=== PATIENT | male | born 1955 | race Two or more races ===

== ENCOUNTER → 2017-11-27 | Outpatient (CLI) | payer OTHER ==
[~2017-11-27] MED LIST: AMLO10TA2 PO; LOSA100T6 PO; METO50TA82 PO; QUET100T4 PO; ROSU20TA PO; ZIPR40CA2 PO; ZOLP10TA PO
== END ==
LOC: RAD 14:33
PROVIDERS: ATTEND Nurse Practitioner
DX: I70.0 Atherosclerosis of aorta (principal); I71.9 Aortic aneurysm of unspecified site, without rupture; I25.10 Atherosclerotic heart disease of native coronary artery without angina pectoris; K80.20 Calculus of gallbladder without cholecystitis without obstruction; J44.9 Chronic obstructive pulmonary disease, unspecified
CPT/HCPCS: 71250

== ENCOUNTER 2018-06-25 13:24 | Inpatient (IN) | payer OTHER ==
[~2018-06-25] VITALS: Ht 170.2 cm; Wt 90.7 kg
[~2018-06-25 13:24] MED LIST changes: -AMLO10TA2 PO; +AMLO10TA8 PO; +LOSA100T14 PO; -LOSA100T6 PO
[2018-06-25] MEDS ORDERED: ASPIRIN 81 MG TABLET CHEW ONE (13:36)
--- NOTE | 2018-06-25 13:54 | NUR ---
PT ARRIVES FROM HOME TODAY WITH INCREASED DIFFICULTY OF BREATHING. PT REPORTS THAT IN THE PAST FEW DAYS HIS BREATHING HAS BEEN MORE DIFFICULT AND HAS BEEN NEEDING TO REST MORE AT HOME. PT HAS HX OF COPD AND ASTHMA. PT IS NOT ON STEROIDS AT THIS TIME. PT CONNECTED TO MONITORS AND CALL LIGHT IN REACH. PT PIV PLACED. EKG TO BE REPEATED.
[2018-06-25] MEDS ORDERED: ASPIRIN 81 MG TABLET CHEW PO ONE (14:00)
[2018-06-25] MEDS ORDERED: SODIUM CHLORIDE FLUSH 10ML SYR IVF ONE (14:00)
[2018-06-25 14:06] LABS: BASOPHILS # (AUTO) 0.05 x10^3/uL (0-0.1); BASOPHILS % (AUTO) 1 % (0-1); EOSINOPHILS # (AUTO) 0.43 x10^3/uL (0-0.4); EOSINOPHILS % (AUTO) 6 % (1-7); LYMPHOCYTES # (AUTO) 1.97 x10^3/uL (1-3.4); LYMPHOCYTES % (AUTO) 29 % (22-44); MD NO; MEAN CORPUSCULAR HEMOGLOBIN 31.5 pg (27.5-34.5); MEAN CORPUSCULAR HGB CONC 34.4 g/dL (33.2-36.2); MEAN CORPUSCULAR VOLUME 91.7 fL (81-97); MEAN PLATELET VOLUME 8.6 fL (7.4-10.4); MONOCYTES # (AUTO) 0.69 x10^3/uL (0.2-0.8); MONOCYTES % (AUTO) 10 % (2-9); NEUTROPHILS # (AUTO) 3.63 x10^3/uL (1.8-6.8); NEUTROPHILS % (AUTO) 54 % (42-75); PLATELET COUNT 164 x10^3/uL (130-400); RED BLOOD COUNT 4.37 x10^6/uL (4.38-5.82); RED CELL DISTRIBUTION WIDTH 14.1 % (9.4-14.8)
[2018-06-25 14:17] LABS: ALBUMIN 3.3 g/dL (3.4-5.0); ANION GAP 6 mmol/L (5-15); CALCIUM 8.7 mg/dL (8.5-10.1); CHLORIDE 112 mmol/L (98-107); CREATININE 1.34 mg/dL (0.7-1.3)
[2018-06-25 14:20] LABS: TROPONIN I < 0.015 ng/mL (0.000-0.045)
[2018-06-25] MEDS ORDERED: METF500T27 PO (15:15)
[2018-06-25] MEDS ORDERED: CARV6.252 PO (15:15)
[2018-06-25] MEDS ORDERED: SODIUM CHLORIDE FLUSH 10ML SYR IVF PRN (17:00)
--- NOTE | 2018-06-25 17:03 | NUR ---
PT TBADM AT THIS TIME. PT RESTIGN IN BED. HAS AMBULATED TO RESTROOM WITHOUT DISTRESS.
--- NOTE | 2018-06-25 17:46 | NUR ---
REPORT TO NICHOLAS PRADO
[2018-06-25 18:10] VITALS: BP 165/76
[2018-06-25] MEDS ORDERED: ACETAMINOPHEN 325 MG TABLET PO PRN (18:30)
[2018-06-25] MEDS ORDERED: morphine SULFATE 10 MG/ML, 1ML IV PRN (18:30)
[2018-06-25] MEDS ORDERED: NITROGLYCERIN 0.4 MG BOTTLE (25 TABS) SL PRN (18:30)
[2018-06-25] MEDS: METOPROLOL TARTRATE 50 MG TABLET PO SCH (18:40)
[2018-06-25] MEDS: HEPARIN 5,000 UNITS/ML, 1ML SQ SCH (18:41)
[2018-06-25 18:48] LABS: CHOLESTEROL, TOTAL 153 mg/dL (140-239); TRIGLYCERIDES 130 mg/dL (50-200); VLDL CHOLESTEROL 26 mg/dL (0-25)
[2018-06-25 18:52] LABS: HDL CHOL % 50 % (26-37); HDL CHOLESTEROL (DIRECT) 76 mg/dL (40-60); LDL CHOLESTEROL,CALCULATED 51 mg/dL (54-169); LDL/HDL RATIO 0.7 (0.5-3.0); TROPONIN I 0.016 ng/mL (0.000-0.045)
[2018-06-25 19:40] LABS: HEMOGLOBIN A1C 6.1 % (4.2-6.3)
[2018-06-25 19:43] VITALS: BP 160/78
[2018-06-25] MEDS ORDERED: SODIUM CHLORIDE FLUSH 10ML SYR IVF SCH (21:00)
[2018-06-25] MEDS ORDERED: QUETIAPINE 100MG TABLET PO SCH (21:00)
[2018-06-25] MEDS: ZIPRASIDONE 40MG CAPSULE PO SCH (21:14)
[2018-06-25 21:51] LABS: TROPONIN I < 0.015 ng/mL (0.000-0.045)
[2018-06-25] MEDS ORDERED: ZOLPIDEM 10MG TABLET PO PRN (22:00)
[2018-06-26 02:08] VITALS: BP 157/70
[2018-06-26] MEDS: HEPARIN 5,000 UNITS/ML, 1ML SQ SCH ×2 (02:53→11:57)
[2018-06-26 05:55] LABS: CHLORIDE 112 mmol/L (98-107)
[2018-06-26] MEDS ORDERED: ASPIRIN 81 MG TABLET EC PO SCH (06:00)
[2018-06-26 06:02] LABS: ALANINE AMINOTRANSFERASE 47 U/L (12-78); ALBUMIN 2.3 g/dL (3.4-5.0); ALKALINE PHOSPHATASE 102 U/L (45-117); ANION GAP 6 mmol/L (5-15); BILIRUBIN,TOTAL 0.4 mg/dL (0.2-1.0); CALCIUM 8.1 mg/dL (8.5-10.1); CREATININE 1.15 mg/dL (0.7-1.3)
[2018-06-26 07:07] VITALS: BP 172/84
[2018-06-26] MEDS ORDERED: REGADENOSON 0.4 MG/5 ML SYRINGE ONE (08:29)
[2018-06-26] MEDS: ZIPRASIDONE 40MG CAPSULE PO SCH (08:36)
[2018-06-26] MEDS: METOPROLOL TARTRATE 50 MG TABLET PO SCH (08:37)
[2018-06-26] MEDS ORDERED: CRESTOR 20MG HOMEMEDPO SCH (09:00)
[2018-06-26] MEDS ORDERED: AMLODIPINE 5 MG TABLET PO SCH (09:00)
[2018-06-26] MEDS ORDERED: LOSARTAN 50MG TABLET PO SCH (09:00)
== END 2018-06-26 15:15 | disposition home or self-care (01) | DRG 313 ==
LOC: ED 16:49 → EDIP 16:50 → ED 16:57 → 5SO 18:06 → DCLOUNGE 06-26 15:00
PROVIDERS: ADMIT Internal Medicine; ATTEND Internal Medicine
PROC: 5A09357 Assistance with Respiratory Ventilation, Less than 24 Consecutive Hours, Continuous Positive Airway Pressure (ICD-10-PCS; principal; 2018-06-26)
DX: R07.89 Other chest pain (principal); R53.81 Other malaise; I10 Essential (primary) hypertension; E66.9 Obesity, unspecified; F31.9 Bipolar disorder, unspecified; G47.00 Insomnia, unspecified; G47.33 Obstructive sleep apnea (adult) (pediatric); E78.5 Hyperlipidemia, unspecified; I25.10 Atherosclerotic heart disease of native coronary artery without angina pectoris; Z95.1 Presence of aortocoronary bypass graft; Z68.31 Body mass index [BMI] 31.0-31.9, adult; Z87.891 Personal history of nicotine dependence
CPT/HCPCS: 36415; 71045; 78452; 80048; 80053; 80061; 82040; 83036; 83880; 84484; 85025; 93005; 93017; 99285; G0378; J1644; J2785; A9502; C9898